=== PATIENT | male | born 1990 | race Caucasian/White ===

== ENCOUNTER 2017-06-05 07:03 | Emergency (ER) | payer SELFPAY ==
[~2017-06-05] VITALS: Ht 182.9 cm; Wt 74.4 kg
[2017-06-05 10:00] VITALS: BP 124/72
== END 2017-06-05 10:00 | disposition home or self-care (01) ==
LOC: ED 07:03
DX: S43.085A Other dislocation of left shoulder joint, initial encounter (principal); X58.XXXA Exposure to other specified factors, initial encounter; Y93.89 Activity, other specified; Y92.89 Other specified places as the place of occurrence of the external cause; Y99.8 Other external cause status
CPT/HCPCS: J2704; J3490; J7030; Q0092